=== PATIENT | male | born 1975 | race Two or more races ===

== ENCOUNTER 2017-08-06 17:29 | Emergency (ER) | payer OTHER ==
[~2017-08-06] VITALS: Ht 188 cm; Wt 69.9 kg
[2017-08-06] MEDS ORDERED: KEFLEX500 MG PO (20:50)
[2017-08-06 21:22] VITALS: BP 112/74
== END 2017-08-06 21:36 | disposition home or self-care (01) ==
LOC: EME 17:29
DX: L03.116 Cellulitis of left lower limb (principal); R60.0 Localized edema; F17.200 Nicotine dependence, unspecified, uncomplicated; Z71.6 Tobacco abuse counseling
CPT/HCPCS: 93971; 99281; 99284